=== PATIENT | female | born 1975 | race Caucasian/White ===

== ENCOUNTER 2016-08-14 19:52 | Emergency (ER) | payer BC, OTHER ==
[2016-08-14 20:10] VITALS: TEMP 98.6; BMI 32.4
[2016-08-14] MEDS ORDERED: SODIUM CHLORIDE 0.9% 10 ML FLUSH FLUSH PRN (20:36)
[2016-08-14] MEDS ORDERED: MORPHINE 4 MG/ML INJECTION IV ONE (20:50)
[2016-08-14] MEDS ORDERED: ASPIRIN 325 MG TAB PO ONE (20:50)
[2016-08-14] MEDS ORDERED: ONDANSETRON HCL 4 MG/2 ML VIAL IV ONE (20:50)
--- NOTE | 2016-08-14 20:50 | EDPRACDOC ---
- General Information Chief Complaint: Chest Pain Stated Complaint: CP [employer] WE[employer]ING HE[employer] MONITOR Time Seen by Provider: 08/14/16 20:19 Information Source: Patient Mode of Arrival: Car Home Medications: Home Medications Acetaminophen with Codeine [TYLENOL WITH CODEINE; [employer] with Codeine] 5 ml PO Q4-6H PRN #120 ml 08/14/16 Albuterol Sulfate [Proair Hfa] 1 - 2 puff INH Q4-6H PRN 08/14/16 Biotin 5 mg PO DAILY 08/14/16 Juice+ Gummy Vitamin 1 tab PO DAILY 08/14/16 Meloxicam [Mobic] 7.5 mg PO BID #20 tab 08/14/16 Omeprazole 40 mg PO DAILY 08/14/16 Allergies/Adverse Reactions: Allergies Allergy/AdvReac Type Severity Reaction Status Date / Time No Known Allergies Allergy Unverified 08/14/16 21:15 - History of Present Illness Onset: 1829 HPI: PT PRESENTS TODAY WITH CP THAT BEGAN 2 HOURS AGO. PT STATES THAT THE PAIN FEELS LIKE PRESSURE, SUDDEN ONSET, NON-RADIATING AND WORSE WITH DEEP BREATH. PT STATES THAT SHE IS CURRENTLY BEING FOLLOWED BY PCP WITH HOLTER MONITOR D/T PALPITATIONS FOR 3 MONTHS, AND TODAY THE MONITORING STAFF CALLED PT BECAUSE THEY "WERE WORRIED BY ONE OF MY READINGS AND THOUGHT I MAY HAVE PASSED OUT". PT DOES STATE RECENT NON-PRODUCTIVE COUGH. NO APPARENT DISTRESS AT THIS TIME. Chest Pain Location: Reports: Substernal Pain Radiation: Reports: None Symptoms Occur: Reports: Suddenly, At Rest Cardiac Risk Factors: Reports: None Cardiac History of: Reports: Other PE Risk Factors: Reports: None Prehospital Care: Reports: None Pain Came On: Reports: Suddenly Pain Status: Present Now Pain Description: Reports: Pressure Pain Severity: Moderate Pain Worsens With: Reports: Coughing, Breathing Pain Improves With: Reports: Rest Associated Signs and Symptoms: Reports: Nausea ED Past Medical History - History Reviewed Yes Nurses notes reviewed and agree except as marked - Patient Medical History Respiratory History: Reports: Asthma Psychological History: Denies: Depression Systemic History: Denies: Cancer Surgical History: Denies: Hysterectomy - Social Medical History Smoking Status: Never smoker EDM Review of Systems - Review of Systems ROS Negative Except as Marked: Yes All systems reviewed and were negative except as marked Constitutional: No Symptoms Reported Ears: No Symptoms Reported Throat: No Symptoms Reported Nose: No Symptoms Reported Respiratory: Cough Cardiovascular: Chest Pain Gastrointestinal: Nausea Neurological: No Symptoms Reported Musculoskeletal: Chestwall Integumentary: No Symptoms Reported - Physical Exam Constitutional: Alert (Awake), No apparent distress Oriented to: Time, Person, Place Last recorded Vital Signs: Last Vital Signs Temp 98.6 F 08/14/16 20:03 Pulse 75 08/14/16 20:03 Resp 20 08/14/16 20:03 BP 121/60 08/14/16 20:03 Pulse Ox 98 08/14/16 20:03 Oxygen Pulse Oxygen Saturation 98 O2 Device Room Air Oxygen Flow Rate Fraction of Inspired Oxygen ( FIO2) - HEENT Head: Normal Eye Exam: Normal Neck: Normal, Denies Pain, Midline - Respiratory/Cardiovascular Respiratory: Normal - CTA Cardiovascular: Normal - GI Auscultation: Normal Palpation: Normal Tenderness: Non tender - Musculoskeletal Back: Normal Extremities: Normal - Integumentary Skin: Normal Lymphatics: Normal - Neurologic Cerebellar: Normal Mood Description: Normal Thought: Coherent Perception: Normal ED Chest Pain Exam - Respiratory/Cardiovascular Respiratory: Normal - CTA Cardiovascular/Chest: Normal Radial Pulse: Normal Chest Palpation: Normal - Action ASA given in the ED: Yes - Results 08/14/16 20:55 08/14/16 20:55 - EKG EKG #1 EKG Time: 20:04 -: Yes EKG interpreted by me Rate: bpm: 76 [place]: Normal Rhythm: NSR Block: None Hypertrophy: None ST: Normal Comparison: 01/04/11 - Additional Information PT HAS NOT HAD ANY CARDIAC EVENTS WHILE HERE. NOTED ELEVATED TSH, BUT UNABLE TO GET T3/T4 BACK UNTIL TOMORROW D/T LAB EQUIPMENT FAILURE. NO TACHYCARDIA WHILE HERE, SO LIKELY SUBCLINICAL HYPERTHYROIDISM. PT STATES SHE IS FEELING BETTER. I ATTEMPTED TO CALL NUMBER BACK OF TELEMETRY, BUT ONLY WAS ABLE TO CONTACT A "CUSTOMER SATISFACTION SURVEY" LINE. Decision Time to Discharge: 23:33 - Departure Disposition: Home Condition: Stable Final Diagnosis: Heart palpitations, Cough Instructions: Chest Pain (ED) Education/Counseling Given To: Patient, Significant Other Education/Counseling Given Regarding: Diagnosis, Treatment, Follow Up Referrals: Vernon Nix MD [Primary Care Provider] - One Week Prescriptions: Acetaminophen with Codeine [TYLENOL WITH CODEINE; [employer] with Codeine] 5 ml PO Q4-6H PRN #120 ml PRN Reason: Pain Meloxicam [Mobic] 7.5 mg PO BID #20 tab Additional Instructions: WE WILL CALL WITH ANY POSITIVE RESULTS. OF COURSE, FEEL FREE TO RETURN TO ED FOR ANY WORSE/CONCERNING SYMPTOMS.
--- NOTE | 2016-08-14 21:08 | DIRPT ---
CLINICAL DATA: Chest pain since 6 p.m. tonight EXAM: PORTABLE CHEST 1 VIEW COMPARISON: 07/10/2015 FINDINGS: The heart size and mediastinal contours are within normal limits. Both lungs are clear. The visualized skeletal structures are unremarkable. IMPRESSION: No active disease. Electronically Signed By: Peter Lopez M.D. On: 08/14/2016 21:06
[2016-08-14 21:09] LABS: AUTOMATED BASOPHIL 0.6 % (0-2); AUTOMATED EOSINOPHIL 3.3 % (0-5); AUTOMATED LYMPH 31.3 % (17-44); AUTOMATED MONOCYTE 9.3 % (3-10); AUTOMATED NEUTROPHIL 55.5 % (45-76); MPV 7.2 fL (7.4-10.4)
[2016-08-14 21:17] LABS: PARTIAL THROMB. TIME 23.1 SEC (22-35)
[2016-08-14 21:24] LABS: BLOOD UREA NITROGEN 8 MG/DL (7-17); CALCIUM 9.2 MG/DL (8.4-10.2); CALCULATED OSMOLALITY 265 MOs/Kg (270-290); CHLORIDE 101 mEq/L (98-107); GLUCOSE 83 MG/DL (70-99); SODIUM LEVEL 139 mEq/L (137-146); TOTAL PROTEIN 7.7 G/DL (6.3-8.2)
[2016-08-14 21:50] LABS: hTSH 5.03 uIU/mL (0.5-4.67)
[2016-08-14] MEDS ORDERED: KETOROLAC TROMETH 30 MG/ML VIAL IV ONE (22:18)
[2016-08-14 23:36] VITALS: BP 117/70; PULSE 68
[2016-08-15 08:57] LABS: FREE T3 3.77 pg/mL (2.77-5.27); FREE T4 1.1 ng/dL (0.78-2.19)
== END 2016-08-14 23:40 | disposition home or self-care (01) ==
LOC: ED 19:52
DX: R00.2 Palpitations (principal); R05 Cough
CPT/HCPCS: 36415; 71010; 80053; 84439; 84443; 84481; 84484; 85025; 85610; 85730; 93005; 96374; 96375; 99285; J1885; J2270; J2405; J3490